=== PATIENT | female | born 1965 | race African-American/Black ===

== ENCOUNTER 2020-02-14 12:56 | Inpatient (IN) | payer BC ==
[~2020-02-14] VITALS: Ht 157.5 cm; Wt 94.3 kg
[2020-02-14 13:57] LABS: BASOPHILS % 0.6 % (0.0-2.0); EOSINOPHILS % 0.1 % (0.0-5.0); HEMATOCRIT. 35.8 % (36.0-48.0); HEMOGLOBIN. 11.9 g/dL (12.0-16.0); LYMPHOCYTES % 15.8 % (20.0-50.0); MEAN PLATELET VOLUME 8.3 fl (7.4-10.4); MONOCYTES % 6.7 % (2.0-8.0); NEUTROPHILS % 76.8 % (40.0-76.0); PLATELET 237 x1000/uL (130-400); RED BLOOD CELL COUNT 4.42 mill/uL (4.2-5.4); RED CELL DISTRIBUTION WIDTH 15.6 % (11.6-14.6)
[2020-02-14] MEDS ORDERED: LORAZEPAM 2MG/ML CPJ IV ONE (14:00)
[2020-02-14 14:04] LABS: CHLORIDE 100 mEq/L (98-107)
[2020-02-14] MEDS ORDERED: ASPIRIN 81MG TABLET PO ONE (17:00)
[2020-02-14] MEDS ORDERED: ONDANSETRON HCL 4MG/2ML INJ IV PRN (18:30)
[2020-02-14] MEDS ORDERED: CLONIDINE 0.1MG TABLET PO PRN (18:30)
[2020-02-14] MEDS ORDERED: IPRATROPIUM/ALBUTEROL 0.5-3(2.5)MG/3ML NEB HHN PRN (18:30)
[2020-02-14] MEDS ORDERED: DIPHENHYDRAMINE 50MG/ML VIAL IV PRN (18:30)
[2020-02-14] MEDS ORDERED: ENOXAPARIN 40MG/0.4ML SYR SUBCUT SCH (19:00)
[2020-02-14] MEDS ORDERED: ATORVASTATIN CALCIUM 40MG TABLET PO SCH (21:00)
[2020-02-15 01:10] VITALS: BP 139/91
[2020-02-15] MEDS: ACETAMINOPHEN 325MG TABLET PO PRN ×2 (02:11→21:03)
[2020-02-15] MEDS ORDERED: LOSA50TA41 PO (02:42)
[2020-02-15] MEDS ORDERED: METF-414 PO (02:42)
[2020-02-15 04:00] VITALS: BP 110/82
[2020-02-15 07:49] LABS: BASOPHILS % 0.6 % (0.0-2.0); EOSINOPHILS % 0.1 % (0.0-5.0); HEMATOCRIT. 34.3 % (36.0-48.0); HEMOGLOBIN. 11.5 g/dL (12.0-16.0); LYMPHOCYTES % 24.3 % (20.0-50.0); MEAN CORPUSCULAR HEMOGLOBIN 26.9 pg (28.0-32.0); MEAN CORPUSCULAR VOLUME 80.2 fL (81.0-99.0); MEAN PLATELET VOLUME 7.7 fl (7.4-10.4); MONOCYTES % 8.1 % (2.0-8.0); NEUTROPHILS % 66.9 % (40.0-76.0); PLATELET 238 x1000/uL (130-400); RED BLOOD CELL COUNT 4.27 mill/uL (4.2-5.4); RED CELL DISTRIBUTION WIDTH 15.4 % (11.6-14.6)
[2020-02-15 07:59] LABS: CHLORIDE 101 mEq/L (98-107)
[2020-02-15 08:00] VITALS: BP 137/92
[2020-02-15 08:11] LABS: LDL CHOLESTEROL 58 mg/dL (5-100)
[2020-02-15 08:12] LABS: HDL CHOLESTEROL 32 mg/dL (40-59)
[2020-02-15] MEDS ORDERED: ASPIRIN 81MG EC TABLET PO SCH (09:00)
[2020-02-15 12:00] VITALS: BP 144/89
[2020-02-15] MEDS ORDERED: ENOXAPARIN 100MG/ML SYR SUBCUT SCH (13:00)
[2020-02-15] MEDS ORDERED: AZITHROMYCIN 500 MG TABLET PO SCH (13:00)
[2020-02-15] MEDS ORDERED: IOHEXOL-350 100 ML BOTTLE ONE (13:22)
[2020-02-15 16:00] VITALS: BP 140/80
[2020-02-15] MEDS ORDERED: CEFTRIAXONE 1 G PREMIX 50 ML IV SCH (17:15)
[2020-02-15] MEDS: DEXAMETHASONE 4MG TABLET PO SCH (18:23)
[2020-02-15] MEDS: CEFTRIAXONE 1,000 MG in DEXTROSE 5% WATER 50 ML IV SCH (18:35)
[2020-02-15 20:00] VITALS: BP 128/87
[2020-02-15] MEDS: GUAIFENESIN-DM 200MG-20MG/10ML UDC PO PRN (20:58)
[2020-02-15 23:14] LABS: CLARITY URINE CLEAR (CLEAR); COLOR URINE YELLOW (YELLOW); KETONES URINE NEGATIVE (NEGATIVE); LEUKOCYTE ESTERASE URINE NEGATIVE (NEGATIVE); NITRITE URINE NEGATIVE (NEGATIVE); OCCULT BLOOD URINE NEGATIVE (NEGATIVE); PH URINE 5.5 (4.5-8.0); PROTEIN URINE NEGATIVE (NEGATIVE); SPECIFIC GRAVITY URINE 1.024 (1.005-1.030); UROBILINOGEN URINE 0.2 E.U./dL (0.2-1.0)
[2020-02-15 23:19] LABS: *AMPHETAMINES SCREEN URINE NEGATIVE (NEGATIVE); *BARBITURATES SCREEN URINE NEGATIVE (NEGATIVE); *BENZODIAZEPINES SCREEN URINE NEGATIVE (NEGATIVE); *COCAINE SCREEN URINE NEGATIVE (NEGATIVE); METHADONE URINE SCREEN NEGATIVE (NEGATIVE)
[2020-02-15 23:20] LABS: CANNABINOID URINE SCREEN NEGATIVE (NEGATIVE); OPIATES URINE SCREEN NEGATIVE (NEGATIVE); PHENCYCLIDINE URINE SCREEN NEGATIVE (NEGATIVE)
[2020-02-16] VITALS (7 sets, daily range): BP systolic 116–166; BP diastolic 75–99
[2020-02-16] MEDS: GUAIFENESIN-DM 200MG-20MG/10ML UDC PO PRN ×2 (03:53→20:13)
[2020-02-16] MEDS: AZITHROMYCIN 250 MG TABLET PO SCH (09:02)
[2020-02-16] MEDS: DEXAMETHASONE 4MG TABLET PO SCH (09:02)
[2020-02-16] MEDS: ENOXAPARIN 30MG/0.3ML SYR SUBCUT SCH ×2 (09:03→20:10)
[2020-02-16] MEDS: ALBUTEROL 6.7GM HFA INHALER ORI SCH ×2 (12:47→23:55)
[2020-02-16 13:45] LABS: BG BASE EXCESS 1.5 mmol/L (-2.0-2.0); BG CARBOXYHEMOGLOBIN 0.3 % (0.5-1.5); BG DEOXYHEMOGLOBIN 5.7 % (0.0-5.0); BG FRACTION INSPIRED OXYGEN 21; BG HCO3 ACT 24.5 mmol/L (22.0-26.0); BG METHEMOGLOBIN 0.2 % (0.0-1.5); BG OXYGEN SATURATION 94.3 % (92.0-98.5); BG OXYHEMOGLOBIN 93.8 % (94.0-97.0); BG PCO2 33.6 mmHg (35.0-45.0); BG PH 7.481 (7.350-7.450); BG SAMPLE SITE RIGHT RADIAL; BG TOTAL HEMOGLOBIN 12.2 g/dL (12.0-18.0); BG VENT MODE ROOM AIR
[2020-02-16] MEDS: CEFTRIAXONE 1,000 MG in DEXTROSE 5% WATER 50 ML IV SCH (17:38)
[2020-02-17] VITALS: BP 115/75
[2020-02-17] MEDS: GUAIFENESIN-DM 200MG-20MG/10ML UDC PO PRN ×2 (00:20→05:33)
[2020-02-17 04:00] VITALS: BP 137/90
[2020-02-17] MEDS: ALBUTEROL 6.7GM HFA INHALER ORI SCH ×3 (05:34→17:13)
[2020-02-17 08:00] VITALS: BP 125/86
[2020-02-17] MEDS: DEXAMETHASONE 4MG TABLET PO SCH (08:38)
[2020-02-17] MEDS: AZITHROMYCIN 250 MG TABLET PO SCH (08:38)
[2020-02-17] MEDS: ENOXAPARIN 30MG/0.3ML SYR SUBCUT SCH (08:39)
[2020-02-17 12:00] VITALS: BP 121/79
[2020-02-17] MEDS ORDERED: DEXA6TAB MT (14:07)
[2020-02-17] MEDS ORDERED: APIX5TAB MT (14:07)
[2020-02-17] MEDS ORDERED: ALBU90AE INH (14:07)
[2020-02-17] MEDS ORDERED: LEVO500T2 MT (14:07)
[2020-02-17 16:00] VITALS: BP 145/91
[2020-02-17 17:25] VITALS: BP 145/91
[2020-02-17] MEDS: CEFTRIAXONE 1,000 MG in DEXTROSE 5% WATER 50 ML IV SCH (17:52)
== END 2020-02-17 19:02 | disposition home or self-care (01) | DRG 871 ==
LOC: ER 12:56 → EDBEDREQ 17:47 → EDBEDREQTM 17:47 → ENRESERV 23:23 → 7WST 02-15 01:48
PROVIDERS: ADMIT Internal Medicine; ATTEND Internal Medicine
DX: A41.89 Other specified sepsis (principal); U07.1 COVID-19; J12.89 Other viral pneumonia; E87.1 Hypo-osmolality and hyponatremia; D64.9 Anemia, unspecified; I10 Essential (primary) hypertension; E66.01 Morbid (severe) obesity due to excess calories; R06.03 Acute respiratory distress; E11.9 Type 2 diabetes mellitus without complications; E86.0 Dehydration; G90.8 Other disorders of autonomic nervous system; R09.02 Hypoxemia; Z98.51 Tubal ligation status; Z68.38 Body mass index [BMI] 38.0-38.9, adult; Z88.5 Allergy status to narcotic agent
CPT/HCPCS: 36415; 36600; 71045; 71275; 80053; 80061; 80305; 81003; 82375; 82805; 83880; 84443; 84484; 85025; 85379; 87635; 93005; 93970; 99285; J0696; J1200; J1650; J2060; J7060; J8540; Q9967

== ENCOUNTER 2022-03-16 14:00 | Emergency (ER) | payer BC ==
[~2022-03-16] VITALS: Ht 157.5 cm; Wt 85.0 kg
[~2022-03-16 14:00] MED LIST: ALBU90AE INH; APIX5TAB MT; DEXA6TAB MT; LEVO500T2 MT; LOSA50TA41 PO; METF-414 PO
[2022-03-16 14:10] VITALS: BP 171/106
[2022-03-16 15:55] LABS: BASOPHILS % 0.6 % (0.0-2.0); EOSINOPHILS % 1.8 % (0.0-5.0); HEMATOCRIT. 35.9 % (36.0-48.0); HEMOGLOBIN. 11.8 g/dL (12.0-16.0); LYMPHOCYTES % 31.1 % (20.0-50.0); MEAN CORPUSCULAR VOLUME 82.4 fL (81.0-99.0); MEAN PLATELET VOLUME 7.7 fl (7.4-10.4); MONOCYTES % 8.4 % (2.0-8.0); NEUTROPHILS % 58.1 % (40.0-76.0); PLATELET 296 x1000/uL (130-400); RED BLOOD CELL COUNT 4.35 mill/uL (4.2-5.4); RED CELL DISTRIBUTION WIDTH 16.1 % (11.6-14.6)
[2022-03-16 15:59] LABS: CHLORIDE 103 mEq/L (98-107)
[2022-03-16 16:00] LABS: PROTHROMBIN TIME 10.3 sec (9.6-11.0)
== END 2022-03-16 17:20 | disposition home or self-care (01) ==
LOC: ER 14:49
DX: R10.84 Generalized abdominal pain (principal); K92.1 Melena; I10 Essential (primary) hypertension; E11.9 Type 2 diabetes mellitus without complications; Z79.84 Long term (current) use of oral hypoglycemic drugs; Z98.51 Tubal ligation status
CPT/HCPCS: 36415; 80053; 85025; 86850; 86900; 93005; 99284